=== PATIENT | female | born 1935 | race Asian ===

== ENCOUNTER → 2017-05-13 | Outpatient (CLI) | payer BC, MEDICARE ==
--- NOTE | 2017-05-13 17:25 | Diagnostic Imaging Report ---
INDICATION: Bilateral edema. TECHNIQUE: Multiple real-time grayscale images were obtained over the lower extremity venous system in various projections. Duplex Doppler and color Doppler images were also obtained. FINDINGS: The common femoral, femoral and popliteal veins demonstrate normal response to compression, augmentation and Valsalva. There are no abnormal lower extremity fluid collections or masses. IMPRESSION: No evidence of deep venous thrombosis in either lower extremity. Dictated by: Dictated on workstation # [id number]
== END ==
LOC: RAD 16:19
PROVIDERS: ATTEND Nurse Practitioner Family
DX: R60.0 Localized edema (principal)
CPT/HCPCS: 93970